=== PATIENT | female | born 1960 ===

== ENCOUNTER 2017-12-22 05:48 | Observation (INO) | payer BC ==
--- NOTE | 2017-12-22 06:20 | ED PDOC ---
Lower Extremity Pain/Injury Time Seen by Provider: 12/22/17 06:00 Chief Complaint (Nursing): Lower Extremity Problem/Injury Chief Complaint (Provider): Right Knee Pain History Per: Patient History/Exam Limitations: no limitations Onset/Duration Of Symptoms: Days (x 1 year ) Current Symptoms Are (Timing): Still Present Additional Complaint(s): 56 year old female with a history of a right patellar fracture presents to the ED complaining of right knee pain, onset 1 year ago. Patient reports the pain is sharp and constant. Patient is known to Dr. Chirinos, orthopedist. She has no other complaints. PMD: Troy Jimenez Past Medical History Reviewed: Historical Data, Nursing Documentation, Vital Signs Vital Signs: Last Vital Signs Temp 98.2 F 12/22/17 06:07 Pulse 76 12/22/17 06:07 Resp 16 12/22/17 06:07 BP 146/85 12/22/17 06:07 Pulse Ox 99 12/22/17 06:07 - Medical History PMH: Denies: Arthritis, CHF, COPD, HTN, Hypercholesterolemia, Hypothyroidism, Rheumatoid Arthritis Other PMH: right patellar fracture - Surgical History Other surgeries: right knee repair - Family History Family History: States: Unknown Family Hx - Home Medications Home Medications: Ambulatory Orders Medication Instructions Recorded Docusate [Colace] 100 mg PO BID #0 cap 02/06/16 Enoxaparin [Lovenox] 40 mg IV DAILY #0 syr 02/06/16 Sennosides [Senna Lax] 8.6 mg PO DAILY PRN #0 tablet 02/06/16 oxyCODONE/Acetaminophen [Percocet 1 tab PO Q4 PRN #0 tab 02/06/16 5/325 mg Tab] oxyCODONE/Acetaminophen [Percocet 2 tab PO Q4 PRN #0 tab 02/06/16 5/325 mg Tab] - Allergies Allergies/Adverse Reactions: Allergies Allergy/AdvReac Type Severity Reaction Status Date / Time No Known Allergies Allergy Verified 02/04/16 08:13 Review of Systems ROS Statement: Except As Marked, All Systems Reviewed And Found Negative Musculoskeletal: Positive for: Leg Pain (right knee pain) Physical Exam - Reviewed Nursing Documentation Reviewed: Yes Vital Signs Reviewed: Yes - Physical Exam Appears: Positive for: Non-toxic, No Acute Distress Head Exam: Positive for: ATRAUMATIC, NORMOCEPHALIC Skin: Positive for: Normal Color, Warm, Dry Eye Exam: Positive for: EOMI, Normal appearance, PERRL Neck: Positive for: Normal, Painless ROM, Supple Cardiovascular/Chest: Positive for: Regular Rate, Rhythm. Negative for: Murmur Respiratory: Positive for: Normal Breath Sounds. Negative for: Respiratory Distress Gastrointestinal/Abdominal: Positive for: Normal Exam, Soft Back: Positive for: Normal Inspection Extremity: Positive for: Normal ROM, Tenderness (mild right knee) - ECG O2 Sat by Pulse Oximetry: 99 (RA) Pulse Ox Interpretation: Normal Medical Decision Making Medical Decision Making: Time: 06:12 Impression: Initial Plan: --EKG --CMP --Urine preg --Urine dip --CBC --PTT --Prothrombin time --Dextrose 5% --Urinalysis Case was discussed with Dr. Kathleen who is aware of patient and will be evaluated by Dr. Chirinos. Scribe Attestation: Documented by Lyudmila Hernandez, acting as a scribe for Krystian Padilla MD. Provider Scribe Attestation: All medical record entries made by the Scribe were at my direction and personally dictated by me. I have reviewed the chart and agree that the record accurately reflects my personal performance of the history, physical exam, medical decision making, and the department course for this patient. I have also personally directed, reviewed, and agree with the discharge instructions and disposition. Disposition - Clinical Impression Clinical Impression: Knee pain - Patient ED Disposition Is Patient to be Admitted: Yes - Disposition Referrals: Troy Jimenez MD [Primary Care Provider] - Disposition Time: 06:14 Condition: STABLE Forms: seedtag (Divehi) Patient Signed Over To: Regan Kathleen - Pt Status Changed To: Hospital Disposition Of: Inpatient - Admit Certification Admit to Inpatient:: After my assessment, the patient will require hospitalization for at least two midnights. This is because of the severity of symptoms shown, intensity of services needed, and/or the medical risk in this patient being treated as an outpatient.
--- NOTE | 2017-12-22 06:39 | CP.PCM.CON ---
History of Present Illness - History of Present Illness History of Present Illness: Orthopedist: Dr Chirinos PMD: Troy Jimenez MD Chief Complaint: Right knee Pain The patient was seen and examined in the ED HPI: This is a 57 years old female with Hx of Right displaced patellar fracture with Hemipatellectomy and joint wiring in 02/07. She comes referring right knee pain for months, becoming worse, and she feels the sensation of a foreign body below the skin at the anterior region of the knee. The Pain increases with pressure and walking, minimal relief with analgesics. No fever, chills, nausea, vomits, diarrhea. PMH: Right Knee displaced patellar Fx PSH: Hysterectomy; Right knee Hemipatellectomy SH: No illegal drug use; No ETOH; never Smoked; Live with her family FH: States: Unknown Family Hx Allergies: NKDA Medication: denies Past Patient History - Infectious Disease Hx of Infectious Diseases: None - Past Medical History & Family History Past Medical History?: No - Past Social History Smoking Status: Never Smoked - CARDIAC Hx Congestive Heart Failure: No Hx Hypercholesterolemia: No Hx Hypertension: No - PULMONARY Hx Chronic Obstructive Pulmonary Disease (COPD): No - NEUROLOGICAL HX Cerebrovascular Accident: No - RENAL Hx Renal Failure: No - ENDOCRINE/METABOLIC Hx Hypothyroidism: No - MUSCULOSKELETAL/RHEUMATOLOGICAL Hx Arthritis: No Hx Rheumatoid Arthritis: No - PSYCHIATRIC Hx Substance Use: No - SURGICAL HISTORY Hx Surgeries: Yes Hx Hysterectomy: Yes (2008) - ANESTHESIA Hx Anesthesia: Yes Hx Anesthesia Reactions: No Hx Malignant Hyperthermia: No Meds Allergies/Adverse Reactions: Allergies Allergy/AdvReac Type Severity Reaction Status Date / Time No Known Allergies Allergy Verified 02/04/16 08:13 - Medications Medications: Current Medications Dextrose/Sodium Chloride (Dextrose 5%/0.45% Ns 1000 Ml) 1,000 mls @ 125 mls/hr IV .Q8H ALIZE Results - Vital Signs Recent Vital Signs: Last Vital Signs Temp 98.2 F 12/22/17 06:07 Pulse 76 12/22/17 06:07 Resp 16 12/22/17 06:07 BP 146/85 12/22/17 06:07 Pulse Ox 99 12/22/17 06:34 - Labs Result Diagrams: 12/22/17 06:34 12/22/17 06:34 Assessment & Plan - Date & Time Date: 12/22/17 Time: 06:39
[2017-12-22] MEDS: Dextrose 5%/0.45% NS 1,000 ML IV SCH ×3 (06:42→22:15)
[2017-12-22 06:44] LABS: BASO # 0.1 K/uL (0.0-0.2); BASO % 0.6 % (0.0-2.0); EOS # 0.3 K/uL (0.0-0.7); EOS % 2.9 % (0.0-4.0); HEMOGLOBIN 14.2 g/dL (12.0-16.0); LYMPH # 2.4 K/uL (1.0-4.3); LYMPH % 26.7 % (20.0-40.0); MEAN CELL VOLUME 92.3 fl (81.0-99.0); MEAN CORPUSCULAR HEMOGLOBIN 31.8 pg (27.0-31.0); MEAN CORPUSCULAR HGB CONC 34.4 g/dL (33.0-37.0); MONO # 0.8 K/uL (0.0-0.8); MONO % 9.1 % (0.0-10.0); NEUT # 5.5 K/uL (1.8-7.0); NEUT % 60.7 % (50.0-75.0); NRBC % 0.2 % (0.0-0.0); RBC 4.47 Mil/uL (3.80-5.20); RED CELL DISTRIBUTION WIDTH 13.2 % (11.5-14.5); WHITE BLOOD COUNT 9.1 K/uL (4.8-10.8)
[2017-12-22 06:54] LABS: SQUAMOUS EPITHIAL 1 /hpf (0-5); URINE BACTERIA RARE (<OCC); URINE BILIRUBIN NEGATIVE (NEGATIVE); URINE BLOOD NEGATIVE (NEGATIVE); URINE CLARITY SLIGHTY-CLOUDY (Clear); URINE COLOR YELLOW (YELLOW); URINE GLUCOSE (UA) NEG (Normal); URINE LEUKOCYTE ESTERASE SMALL Leu/uL (Negative); URINE NITRATE NEGATIVE (NEGATIVE); URINE PROTEIN NEGATIVE (NEGATIVE); URINE UROBILINOGEN 0.2-1.0 mg/dL (0.2-1.0)
[2017-12-22 06:55] LABS: ALB/GLOB RATIO 1.2 (1.0-2.1); ALBUMIN 4.7 g/dL (3.5-5.0); ALT/SGPT 40 U/L (9-52); AST/SGOT 32 U/L (14-36); BLOOD UREA NITROGEN 14 mg/dl (7-17); CALCIUM 9.5 mg/dL (8.4-10.2); GFR AFRICAN-AMERICAN > 60; GFR NON-AFRICAN AMERICAN > 60
--- NOTE | 2017-12-22 08:06 | CP.PCM.HP ---
History of Present Illness - History of Present Illness History of Present Illness: Orthopedist: Dr Chirinos PMD: Troy Jimenez MD Chief Complaint: Right knee Pain The patient was seen and examined in the ED HPI: This is a 57 years old female with Hx of Right displaced patellar fracture with Hemipatellectomy and joint wiring in 02/07. She comes referring right knee pain for months, becoming worse, and she feels the sensation of a foreign body below the skin at the anterior region of the knee. The Pain increases with pressure and walking, minimal relief with analgesics. No fever, chills, nausea, vomits, diarrhea. PMH: Right Knee displaced patellar Fx PSH: Hysterectomy; Right knee Hemipatellectomy SH: No illegal drug use; No ETOH; never Smoked; Live with her family FH: States: Unknown Family Hx Allergies: NKDA Medication: denies Present on Admission - Present on Admission Any Indicators Present on Admission: No History of DVT/PE: No History of Uncontrolled Diabetes: No Urinary Catheter: No Decubitus Ulcer Present: No Review of Systems - Constitutional Constitutional: absent: Anorexia, Chills, Fever, Headache, Weakness - EENT Eyes: Requires Corrective Lenses. absent: Diplopia, Floaters, Photophobia, Sees Flashes Ears: absent: Decreased Hearing, Ear Discharge, Ear Pain, Tinnitus Nose/Mouth/Throat: absent: Epistaxis, Nasal Congestion, Nasal Discharge - Cardiovascular Cardiovascular: absent: Chest Pain, Dyspnea, Leg Edema - Respiratory Respiratory: absent: Cough, Dyspnea, Wheezing, Stridor - Gastrointestinal Gastrointestinal: absent: Abdominal Pain, Constipation, Diarrhea - Genitourinary Genitourinary: Urinary Frequency. absent: Dysuria, Flank Pain, Hematuria - Musculoskeletal Musculoskeletal: Arthralgias. absent: Joint Swelling, Muscle Weakness, Myalgias Additional comments: Pain ti the Right knee - Integumentary Integumentary: absent: Pruritus, Rash, Skin Ulcer, Sores, Striae, Swelling - Neurological Neurological: absent: Confusion, Focal Weakness, Headaches, Weakness - Psychiatric Psychiatric: absent: Anxiety, Depression, Panic Attacks - Endocrine Endocrine: absent: Palpitations, Polydipsia, Polyphagia, Polyuria - Hematologic/Lymphatic Hematologic: absent: Easy Bleeding, Easy Bruising Past Patient History - Infectious Disease Hx of Infectious Diseases: None - Past Medical History & Family History Past Medical History?: No - Past Social History Smoking Status: Never Smoked Chewing Tobacco Use: No Alcohol: None Home Situation {Lives}: With Family - CARDIAC Hx Congestive Heart Failure: No Hx Hypercholesterolemia: No Hx Hypertension: No - PULMONARY Hx Chronic Obstructive Pulmonary Disease (COPD): No - NEUROLOGICAL HX Cerebrovascular Accident: No - HEENT Hx HEENT Problems: No - RENAL Hx Chronic Kidney Disease: No Hx Renal Failure: No - ENDOCRINE/METABOLIC Hx Endocrine Disorders: No Hx Hypothyroidism: No - HEMATOLOGICAL/ONCOLOGICAL Hx Blood Disorders: No - INTEGUMENTARY Hx Dermatological Problems: No - MUSCULOSKELETAL/RHEUMATOLOGICAL Hx Arthritis: No Hx Rheumatoid Arthritis: No - GASTROINTESTINAL Hx Gastrointestinal Disorders: No - GENITOURINARY/GYNECOLOGICAL Hx Genitourinary Disorders: No - PSYCHIATRIC Hx Psychophysiologic Disorder: No Hx Substance Use: No - SURGICAL HISTORY Hx Surgeries: Yes Hx Hysterectomy: Yes (2008) Other/Comment: Right Kaden patellectomy - ANESTHESIA Hx Anesthesia: Yes Hx Anesthesia Reactions: No Hx Malignant Hyperthermia: No Meds Allergies/Adverse Reactions: Allergies Allergy/AdvReac Type Severity Reaction Status Date / Time No Known Allergies Allergy Verified 02/04/16 08:13 Physical Exam - Constitutional Appears: No Acute Distress - Head Exam Head Exam: ATRAUMATIC, NORMAL INSPECTION, NORMOCEPHALIC - Eye Exam Eye Exam: EOMI, Normal appearance Pupil Exam: NORMAL ACCOMODATION, PERRL - ENT Exam ENT Exam: Mucous Membranes Moist, Normal Exam, Normal External Ear Exam, Normal Oropharynx - Neck Exam Neck exam: Positive for: Full Rom, Normal Inspection. Negative for: Lymphadenopathy, Tenderness - Respiratory Exam Respiratory Exam: Clear to Auscultation Bilateral. absent: Rales, Rhonchi, Wheezes - Cardiovascular Exam Cardiovascular Exam: REGULAR RHYTHM, RRR, +S1, +S2 - GI/Abdominal Exam GI & Abdominal Exam: Normal Bowel Sounds, Soft. absent: Mass, Organomegaly, Tenderness - Rectal Exam Rectal Exam: Deferred - Extremities Exam Extremities exam: Negative for: calf tenderness, pedal edema Additional comments: longitudinal surgical scar at the right knee. mild pain on palpation of the patellar region. Hard foreign body 3-4mm palpable at the anterior right knee No edema - Back Exam Back exam: NORMAL INSPECTION. absent: CVA tenderness (L), CVA tenderness (R) - Neurological Exam Neurological exam: Normal Gait, Oriented x3, Reflexes Normal - Psychiatric Exam Psychiatric exam: Normal Affect, Normal Mood - Skin Skin Exam: Intact, Normal Color, Warm Results - Vital Signs Recent Vital Signs: Last Vital Signs Temp 97.8 F 12/22/17 08:02 Pulse 60 12/22/17 08:02 Resp 18 12/22/17 08:02 BP 146/85 12/22/17 08:02 Pulse Ox 99 12/22/17 07:39 - Labs Result Diagrams: 12/22/17 06:34 12/22/17 06:34 Labs: Laboratory Results - last 24 hr 12/22/17 12/22/17 12/22/17 06:34 06:34 06:38 WBC 9.1 RBC 4.47 Hgb 14.2 Hct 41.2 MCV 92.3 MCH 31.8 H MCHC 34.4 RDW 13.2 Plt Count 200 MPV 10.0 Neut % (Auto) 60.7 Lymph % (Auto) 26.7 [place] % (Auto) 9.1 Eos % (Auto) 2.9 Baso % (Auto) 0.6 Neut # (Auto) 5.5 Lymph # (Auto) 2.4 [place] # (Auto) 0.8 Eos # (Auto) 0.3 Baso # (Auto) 0.1 Sodium 142 Potassium 4.2 Chloride 103 Carbon Dioxide 27 Anion Gap 16 BUN 14 Creatinine 0.7 Est GFR ( Amer) > 60 Est GFR (Non-Af Amer) > 60 Random Glucose 108 H Calcium 9.5 Total Bilirubin 0.4 AST 32 ALT 40 Alkaline Phosphatase 74 Total Protein 8.7 H Albumin 4.7 Globulin 4.0 H Albumin/Globulin Ratio 1.2 Urine Color Yellow Urine Clarity Slighty-cloudy Urine pH 5.0 Ur Specific [place] 1.020 Urine Protein Negative Urine Glucose (UA) Neg Urine Ketones Negative Urine Blood Negative Urine Nitrate Negative Urine Bilirubin Negative Urine Urobilinogen 0.2-1.0 Ur Leukocyte Esterase Small Urine RBC (Auto) 2 Urine Microscopic WBC 4 Ur Squamous Epith Cells 1 Urine Bacteria Rare - Impressions Impression: NSR 63/min No sign of ischemia - Imaging and Cardiology Chest x-ray Status: Image reviewed by me Additional comment: No infiltrate Assessment & Plan - Assessment and Plan (Free Text) Assessment: #. Right knee pain Plan: 57 years old female with Hx of Right displaced patellar fracture with Hemipatellectomy and joint wiring in 4/16. She comes referring right knee pain for months, becoming worse, and she feels the sensation of a foreign body below the skin at the anterior region of the knee. #. Right knee pain with hx of right hemipatellectomy. Foreign body below the skin at the Right knee - Consult Dr Chirinos - Orthopedic management - X Ray of the right knee - Pain management Post Surgery - DVT prophylaxis with lovenox post surgery - follow CBC/BMP After review of the Medical history labs and radiographs, no hx of bleeding and with no cardiac nor pulmonary hx, I consider this patient with mild to moderate cardiac risk for surgery. The patient is cleared for Surgery with general anesthesia if needed. - Date & Time Date: 12/22/17 Time: 08:05
--- NOTE | 2017-12-22 08:50 | RAD ---
HISTORY: Medical clearance COMPARISON: 02/04/2016 portable TECHNIQUE: Chest PA and lateral FINDINGS: LUNGS: No consolidation. On the lateral view a 4 to 5 mm nodule projects over the mid thoracic vertebral body pulmonary nodule versus bone island are considerations. Prior study: Frontal view. Current study this finding on lateral view not appreciated on frontal view. PLEURA: No significant pleural effusion identified. No pneumothorax apparent. CARDIOVASCULAR: Normal. OSSEOUS STRUCTURES: Thoracic spondylosis. Bilateral shoulder arthrosis. Right shoulder calcific rotator cuff tendinopathy and/or calcific bursitis. VISUALIZED UPPER ABDOMEN: Normal. OTHER FINDINGS: None. IMPRESSION: No consolidative infiltrate. 4 to 5 mm nodule only appreciated on the lateral view at the approximate mid thoracic vertebral body level -indeterminate. Comparison with any outside chest x-rays lateral views to assess for stability. If no such outside studies are available than noncontrast CT chest recommended.
[2017-12-22 08:58] LABS: INR 1.1 (0.9-1.2); PROTHROMBIN TIME 12.2 Seconds (9.8-13.1)
[2017-12-22] MEDS ORDERED: Absorbable Gelatin Sponge Size 12-7 ONE (09:21)
[2017-12-22] MEDS ORDERED: methylPREDNISolone Depo 80 mg/ml Inj ONE (09:21)
[2017-12-22] MEDS ORDERED: Bupivacaine 0.5% Inj(30mL) ONE ×2 (09:22→09:27)
[2017-12-22] MEDS ORDERED: Thrombin Topical 5,000 Int Units Spray Kit ONE (09:22)
[2017-12-22] MEDS ORDERED: EPINEPHrine 1 mg/ml (1:1000) Inj ONE (09:23)
[2017-12-22] MEDS ORDERED: Lidocaine 1% Inj (20ml) ONE (09:26)
[2017-12-22] MEDS ORDERED: Lidocaine 1% w Epi 1:100,000 Inj ONE (09:27)
--- NOTE | 2017-12-22 10:47 | RAD ---
PROCEDURE: Right Knee Radiographs. HISTORY: right knee pain COMPARISON: 02/04/2016 FINDINGS: BONES: There is interval change in the bulk volume of the patella which was previously fractured and displaced. A screw is seen along its inferior aspect. There is a linear calcification and/or ossification in the region of the patellar tendon not seen as such on the prior study JOINTS: Lateral patellofemoral joint space narrowing noted. The medial femoral tibial joint space also appears narrowed. JOINT EFFUSION: None. OTHER FINDINGS: None. IMPRESSION: Postop changes regarding the patella
--- NOTE | 2017-12-22 11:37 | CARD ---
APPROVED REPORT EKG Measurement Heart [id number] <Conclusion> Normal sinus rhythm Normal ECG
--- NOTE | 2017-12-22 12:12 | CP.PCM.CON ---
History of Present Illness - History of Present Illness History of Present Illness: Patient is a 57 y/o female complaining of right knee pain. She has a history of a right patella repair performed by Dr. Chirinos in 2016. She presented to the ER due to worsening right knee pain over the last few weeks. The pain is sharp in quality and located anteriorly. The pain is brought about by palpation and alleviated with rest. There are no associated symptoms. She has failed conservative management with pain medications and physical therapy. Dr. Chirinos was consulted for orthopedic evaluation. Review of Systems - Review of Systems All systems: reviewed and no additional remarkable complaints except Review of Systems: as per HPI Past Patient History - Infectious Disease Hx of Infectious Diseases: None - Past Medical History & Family History Past Medical History?: No Past Family History: Reviewed and not pertinent - Past Social History Smoking Status: Never Smoked Chewing Tobacco Use: No Alcohol: None Home Situation {Lives}: With Family - CARDIAC Hx Congestive Heart Failure: No Hx Hypercholesterolemia: No Hx Hypertension: No - PULMONARY Hx Chronic Obstructive Pulmonary Disease (COPD): No - NEUROLOGICAL HX Cerebrovascular Accident: No - HEENT Hx HEENT Problems: No - RENAL Hx Chronic Kidney Disease: No Hx Renal Failure: No - ENDOCRINE/METABOLIC Hx Endocrine Disorders: No Hx Hypothyroidism: No - HEMATOLOGICAL/ONCOLOGICAL Hx Blood Disorders: No - INTEGUMENTARY Hx Dermatological Problems: No - MUSCULOSKELETAL/RHEUMATOLOGICAL Hx Arthritis: No Hx Rheumatoid Arthritis: No - GASTROINTESTINAL Hx Gastrointestinal Disorders: No - GENITOURINARY/GYNECOLOGICAL Hx Genitourinary Disorders: No - PSYCHIATRIC Hx Psychophysiologic Disorder: No Hx Substance Use: No - SURGICAL HISTORY Hx Surgeries: Yes Hx Hysterectomy: Yes (2008) Other/Comment: Right Kaden patellectomy - ANESTHESIA Hx Anesthesia: Yes Hx Anesthesia Reactions: No Hx Malignant Hyperthermia: No Meds Allergies/Adverse Reactions: Allergies Allergy/AdvReac Type Severity Reaction Status Date / Time No Known Allergies Allergy Verified 02/04/16 08:13 - Medications Medications: Current Medications Enoxaparin Sodium (Lovenox) 40 mg SC DAILY ALIZE PRN Reason: Protocol Dextrose/Sodium Chloride (Dextrose 5%/0.45% Ns 1000 Ml) 1,000 mls @ 125 mls/hr IV .[facility] Last Admin: 12/22/17 06:42 Dose: 125 mls/hr Physical Exam - Constitutional Appears: No Acute Distress - Head Exam Head Exam: ATRAUMATIC, NORMAL INSPECTION, NORMOCEPHALIC - Eye Exam Eye Exam: EOMI, Normal appearance - ENT Exam ENT Exam: Mucous Membranes Moist - Respiratory Exam Respiratory Exam: NORMAL BREATHING PATTERN - Extremities Exam Additional comments: Right knee: old midline incision well healed, small palpable mass at the mid aspect anteriorly with positive tenderness. ROM: 0-120. Sensation intact SP/DP/ TN. Motor intact EHL/FHL/TA/gastron/hip flex. pedal pulses intact. calves soft NT b/l - Expanded Lower Extremities Exam Right Knee exam: full ROM, tenderness. absent: ecchymosis, effusion, erythema, swelling Results - Vital Signs Recent Vital Signs: Last Vital Signs Temp 97.5 F L 12/22/17 08:30 Pulse 76 12/22/17 08:30 Resp 18 12/22/17 08:30 BP 136/85 12/22/17 08:30 Pulse Ox 98 12/22/17 08:30 - Labs Result Diagrams: 12/22/17 06:34 12/22/17 06:34 Labs: Laboratory Results - last 24 hr 12/22/17 12/22/17 12/22/17 06:34 06:34 06:38 WBC 9.1 RBC 4.47 Hgb 14.2 Hct 41.2 MCV 92.3 MCH 31.8 H MCHC 34.4 RDW 13.2 Plt Count 200 MPV 10.0 Neut % (Auto) 60.7 Lymph % (Auto) 26.7 [place] % (Auto) 9.1 Eos % (Auto) 2.9 Baso % (Auto) 0.6 Neut # (Auto) 5.5 Lymph # (Auto) 2.4 [place] # (Auto) 0.8 Eos # (Auto) 0.3 Baso # (Auto) 0.1 PT INR APTT Sodium 142 Potassium 4.2 Chloride 103 Carbon Dioxide 27 Anion Gap 16 BUN 14 Creatinine 0.7 Est GFR ( Amer) > 60 Est GFR (Non-Af Amer) > 60 Random Glucose 108 H Calcium 9.5 Total Bilirubin 0.4 AST 32 ALT 40 Alkaline Phosphatase 74 Total Protein 8.7 H Albumin 4.7 Globulin 4.0 H Albumin/Globulin Ratio 1.2 Urine Color Yellow Urine Clarity Slighty-cloudy Urine pH 5.0 Ur Specific [place] 1.020 Urine Protein Negative Urine Glucose (UA) Neg Urine Ketones Negative Urine Blood Negative Urine Nitrate Negative Urine Bilirubin Negative Urine Urobilinogen 0.2-1.0 Ur Leukocyte Esterase Small Urine RBC (Auto) 2 Urine Microscopic WBC 4 Ur Squamous Epith Cells 1 Urine Bacteria Rare BBK History Checked 12/22/17 12/22/17 08:15 11:15 WBC RBC Hgb Hct MCV MCH MCHC RDW Plt Count MPV Neut % (Auto) Lymph % (Auto) [place] % (Auto) Eos % (Auto) Baso % (Auto) Neut # (Auto) Lymph # (Auto) [place] # (Auto) Eos # (Auto) Baso # (Auto) PT 12.2 INR 1.1 APTT 32.0 Sodium Potassium Chloride Carbon Dioxide Anion Gap BUN Creatinine Est GFR ( Amer) Est GFR (Non-Af Amer) Random Glucose Calcium Total Bilirubin AST ALT Alkaline Phosphatase Total Protein Albumin Globulin Albumin/Globulin Ratio Urine Color Urine Clarity Urine pH Ur Specific [place] Urine Protein Urine Glucose (UA) Urine Ketones Urine Blood Urine Nitrate Urine Bilirubin Urine Urobilinogen Ur Leukocyte Esterase Urine RBC (Auto) Urine Microscopic WBC Ur Squamous Epith Cells Urine Bacteria BBK History Checked No verified bt - Impressions Impression: PROCEDURE: Right Knee Radiographs. HISTORY: right knee pain COMPARISON: 02/04/2016 FINDINGS: BONES: There is interval change in the bulk volume of the patella which was previously fractured and displaced. A screw is seen along its inferior aspect. There is a linear calcification and/or ossification in the region of the patellar tendon not seen as such on the prior study JOINTS: Lateral patellofemoral joint space narrowing noted. The medial femoral tibial joint space also appears narrowed. JOINT EFFUSION: None. OTHER FINDINGS: None. IMPRESSION: Postop changes regarding the patella Assessment & Plan (1) Painful orthopaedic hardware Assessment and Plan: Patient is a 57 y/o female with right painful knee secondary to hardware. -It was proposed by Dr. Chirinos to perform an right knee removal of hardware surgically -The risks/benefits/advantages/disadvantages were explained to the patient and she would like to proceed with the proposed procedure. -NPO -The patient's case and plan was discussed in agreement with Dr. Chirinos -Consult appreciated Status: Acute
[2017-12-22] MEDS ORDERED: Propofol 10 mg/ml Inj (20 ML) ONE (12:28)
[2017-12-22] MEDS ORDERED: Succinylcholine 200 mg/10 ml Inj IV ONE (12:28)
[2017-12-22] MEDS ORDERED: Etomidate 20 mg/10ml Inj IV ONE (12:28)
[2017-12-22] MEDS ORDERED: Lactated Ringer's 1,000 ML IV ONE ×3 (14:00→18:15)
[2017-12-22] MEDS ORDERED: Rocuronium 10 mg/ml (5 ml) ONE ×2 (14:21→15:55)
[2017-12-22] MEDS ORDERED: Oxycodone/Acetaminophen 5/325 mg Tab PO PRN (16:50)
[2017-12-22] MEDS ORDERED: HYDROmorphone 0.5 mg/0.5 ml ISec IVP PRN (17:26)
[2017-12-22] MEDS ORDERED: Lactated Ringer's 1,000 ML IV SCH (17:30)
--- NOTE | 2017-12-22 17:30 | PCM.ANESB3 ---
Femoral Nerve Block - Femoral Nerve Block Date of Procedure: 12/22/17 Anesthesiologist: Phil[place] Pre-Procedure Diagnosis: Right knee painful hardware Post-Procedure Diagnosis: same Procedure Performed: Femoral Nerve Block Right - Procedure Femoral Nerve Block: The procedure was explained to the patient that it is for the post-operative pain management. Consent was obtained after a thorough discussion with the patient regarding the benefits and possible complications of local anesthetic block of the femoral nerve at the inguinal crease area. The patient was brought to the operating room and standard monitors were applied. Time-out was held with the circulating nurse to confirm the correct surgery and the appropriate block. Under general anesthesia, at conclusion of procedure, patient was placed in supine position with fully extended lower extremities and the ___right groin exposed. The femoral artery was then carefully palpated. The ultrasound transducer was then applied to this area in the transverse plane and the femoral nerve was visualized lateral to the femoral artery and underneath the fascia iliaca. After thorough identification, the inguinal crease area was prepped with Chloraprep. At this point, a #22 gauge Stimuplex 4-inch needle was inserted immediately lateral to the femoral artery pulse at the inguinal crease and advanced perpendicularly. The needle was inserted to the ultrasound transducer in-plane towards the femoral nerve in a [id number] direction. Needle advancement was performed carefully under direct ultrasound visualization. Nerve stimulator was used and twitch of the quadriceps muscle was obtained at current of ___0.4__ MA. After negative aspiration, __2___cc of __0.5___% ___bupivicaine with 1:200, 000 epinephrine was injected and this was followed with __28___ _ cc of ___0.5____ % ___bupivicaine with 1:200,000 epinephrine . Under ultrasound guidance the local anesthetics were observed spreading below fascia iliaca and around the femoral nerve. The needle was removed intact . The patient had stable vital signs, was conscious and in no apparent distress. The patient tolerated the femoral nerve block well with stable vital signs and was prepared for emergence.
--- NOTE | 2017-12-22 17:37 | PCM.SURG1 ---
Surgeon's Initial Post Op Note - Surgeon's Notes Surgeon: Taran Director On Air: SRIDHAR Jolly/ 2nd assist ,Ed Maria Type of Anesthesia: General Endo Anesthesia Administered By: Dr Brooke Pre-Operative Diagnosis: Painful hardware L knee. O/A chondral fx medial femoral condyle. tear lateral meniscus. medial pl;ica. tearmedial meniscus. synovitis - tricompartmental Operative Findings: as above Post-Operative Diagnosis: as above Operation Performed: primary repair/reconstruction patella ligament. surgical arthroscopy- microfracture/abrasion arthroplasty. surg artyhroscopy partioal tricompartmental synovectomy. surg arthroscopy- p[artial medial/lateral meniscectomy. removal foreign body( deep). allograft bone graft Specimen/Specimens Removed: foreign body(screw). suture. synvium/meniscal cartilage Estimated Blood Loss: EBL {In ML}: 20 Blood Products Given: N/A Drains Used: No Drains Post-Op Condition: Good Date of Surgery/Procedure: 12/22/17 Time of Surgery/Procedure: 15:00 (time in room/anaesthesia indcurtion time 1400)
--- NOTE | 2017-12-22 18:03 | RAD ---
PROCEDURE: Right Knee Radiographs. HISTORY: s/p Right knee removal of hardware COMPARISON: 12/22/2017 10:24 a.m. FINDINGS: BONES: No acute fracture. Status post surgical resection inferior half of patella. No radiopaque foreign body identified. Subcutaneous gas and gas in the suprapatellar bursa, consistent with postoperative change. JOINTS: Medial and lateral compartments are grossly preserved. JOINT EFFUSION: None. OTHER FINDINGS: None. IMPRESSION: No radiopaque foreign body identified.
[2017-12-22] MEDS ORDERED: Alum-Mag Hydrox-Simethicone Susp (30 mL) PO PRN (19:09)
[2017-12-22 22:28] VITALS: RESP 20
[2017-12-23 02:39] VITALS: TEMP 98.4
[2017-12-23 06:37] LABS: HEMOGLOBIN 12.7 g/dL (12.0-16.0); MEAN CELL VOLUME 92.7 fl (81.0-99.0); MEAN CORPUSCULAR HEMOGLOBIN 31.1 pg (27.0-31.0); MEAN CORPUSCULAR HGB CONC 33.5 g/dL (33.0-37.0); RBC 4.07 Mil/uL (3.80-5.20); WHITE BLOOD COUNT 12.1 K/uL (4.8-10.8)
[2017-12-23 06:47] LABS: BLOOD UREA NITROGEN 13 mg/dl (7-17); CALCIUM 9.3 mg/dL (8.4-10.2); GFR AFRICAN-AMERICAN > 60; GFR NON-AFRICAN AMERICAN > 60
[2017-12-23 07:50] VITALS: BP 115/65; PULSE 88; O2SAT 96
[2017-12-23] MEDS ORDERED: Enoxaparin 40 mg Syringe SC SCH (09:00)
--- NOTE | 2017-12-23 09:17 | CP.PCM.DIS ---
Provider - Provider Date of Admission: 12/22/17 06:14 Attending physician: Regan Kathleen Primary care physician: Troy Jimenez MD Consults: Dr Chirinos : Ortho Time Spent in preparation of Discharge (in minutes): 20 Diagnosis - Discharge Diagnosis (1) Knee pain Status: Acute (2) Painful orthopaedic hardware Status: Acute Hospital Course - Lab Results Lab Results: Most Recent Lab Values WBC 12.1 K/uL (4.8-10.8) H 12/23/17 05:35 RBC 4.07 Mil/uL (3.80-5.20) 12/23/17 05:35 Hgb 12.7 g/dL (12.0-16.0) 12/23/17 05:35 Hct 37.7 % (34.0-47.0) 12/23/17 05:35 MCV 92.7 fl (81.0-99.0) 12/23/17 05:35 MCH 31.1 pg (27.0-31.0) H 12/23/17 05:35 MCHC 33.5 g/dL (33.0-37.0) 12/23/17 05:35 RDW 13.0 % (11.5-14.5) 12/23/17 05:35 Plt Count 207 K/uL (130-400) 12/23/17 05:35 MPV 10.0 fl (7.2-11.7) 12/22/17 06:34 Neut % (Auto) 60.7 % (50.0-75.0) 12/22/17 06:34 Lymph % (Auto) 26.7 % (20.0-40.0) 12/22/17 06:34 Titus % (Auto) 9.1 % (0.0-10.0) 12/22/17 06:34 Eos % (Auto) 2.9 % (0.0-4.0) 12/22/17 06:34 Baso % (Auto) 0.6 % (0.0-2.0) 12/22/17 06:34 Neut # (Auto) 5.5 K/uL (1.8-7.0) 12/22/17 06:34 Lymph # (Auto) 2.4 K/uL (1.0-4.3) 12/22/17 06:34 Titus # (Auto) 0.8 K/uL (0.0-0.8) 12/22/17 06:34 Eos # (Auto) 0.3 K/uL (0.0-0.7) 12/22/17 06:34 Baso # (Auto) 0.1 K/uL (0.0-0.2) 12/22/17 06:34 PT 12.2 Seconds (9.8-13.1) 12/22/17 08:15 INR 1.1 (0.9-1.2) 12/22/17 08:15 APTT 32.0 Seconds (25.6-37.1) 12/22/17 08:15 Sodium 140 mmol/l (132-148) 12/23/17 05:35 Potassium 4.3 MMOL/L (3.6-5.0) 12/23/17 05:35 Chloride 104 mmol/L (98-107) 12/23/17 05:35 Carbon Dioxide 25 mmol/L (22-30) 12/23/17 05:35 Anion Gap 15 (10-20) 12/23/17 05:35 BUN 13 mg/dl (7-17) 12/23/17 05:35 Creatinine 0.7 mg/dl (0.7-1.2) 12/23/17 05:35 Est GFR ( Amer) > 60 12/23/17 05:35 Est GFR (Non-Af Amer) > 60 12/23/17 05:35 Random Glucose 125 mg/dL (65-105) H 12/23/17 05:35 Calcium 9.3 mg/dL (8.4-10.2) 12/23/17 05:35 Total Bilirubin 0.4 mg/dl (0.2-1.3) 12/22/17 06:34 AST 32 U/L (14-36) 12/22/17 06:34 ALT 40 U/L (9-52) 12/22/17 06:34 Alkaline Phosphatase 74 U/L (38-126) 12/22/17 06:34 Total Protein 8.7 G/DL (6.3-8.2) H 12/22/17 06:34 Albumin 4.7 g/dL (3.5-5.0) 12/22/17 06:34 Globulin 4.0 gm/dL (2.2-3.9) H 12/22/17 06:34 Albumin/Globulin Ratio 1.2 (1.0-2.1) 12/22/17 06:34 Urine Color Yellow (YELLOW) 12/22/17 06:38 Urine Clarity Slighty-cloudy (Clear) 12/22/17 06:38 Urine pH 5.0 (5.0-8.0) 12/22/17 06:38 Ur Specific Redfox 1.020 (1.003-1.030) 12/22/17 06:38 Urine Protein Negative mg/dL (NEGATIVE) 12/22/17 06:38 Urine Glucose (UA) Neg mg/dL (Normal) 12/22/17 06:38 Urine Ketones Negative mg/dL (NEGATIVE) 12/22/17 06:38 Urine Blood Negative (NEGATIVE) 12/22/17 06:38 Urine Nitrate Negative (NEGATIVE) 12/22/17 06:38 Urine Bilirubin Negative (NEGATIVE) 12/22/17 06:38 Urine Urobilinogen 0.2-1.0 mg/dL (0.2-1.0) 12/22/17 06:38 Ur Leukocyte Esterase Small Simi/uL (Negative) 12/22/17 06:38 Urine RBC (Auto) 2 /hpf (0-3) 12/22/17 06:38 Urine Microscopic WBC 4 /hpf (0-5) 12/22/17 06:38 Ur Squamous Epith Cells 1 /hpf (0-5) 12/22/17 06:38 Urine Bacteria Rare (<OCC) 12/22/17 06:38 Blood Type O POSITIVE 12/22/17 11:15 Blood Type Confirm O POSITIVE 12/22/17 12:05 Antibody Screen Negative 12/22/17 11:15 BBK History Checked No verified bt 12/22/17 11:15 - Hospital Course Hospital Course: 57 years old female with Hx of Right displaced patellar fracture with Hemipatellectomy and joint wiring January 2016. She comes complaining of right knee pain for months, becoming worse, and she feels the sensation of a foreign body below the skin at the anterior region of the knee. 1. Right knee pain/ Painful Hardware with hx of right hemipatellectomy s/p Arthroscopic surgery, removal of hardware and repair of ligament - Consulted Dr Chirinos - Pt underwent surgery - Pain mgt - PT/OT consulted- pt was trained and provided use of Crutches. DVT proph - Aspirin daily Discharge Exam - Head Exam Head Exam: ATRAUMATIC, NORMAL INSPECTION, NORMOCEPHALIC - Eye Exam Eye Exam: EOMI, Normal appearance Pupil Exam: NORMAL ACCOMODATION - ENT Exam ENT Exam: Mucous Membranes Moist, Normal External Ear Exam - Neck Exam Neck exam: Full Rom - Respiratory Exam Respiratory Exam: NORMAL BREATHING PATTERN. absent: Respiratory Distress - Cardiovascular Exam Cardiovascular Exam: REGULAR RHYTHM, +S1, +S2 - GI/Abdominal Exam GI & Abdominal Exam: Normal Bowel Sounds, Soft. absent: Tenderness - Extremities Exam Extremities exam: normal capillary refill, pedal pulses present Additional comments: no calf tenderness - Back Exam Back exam: FULL ROM. absent: CVA tenderness (L), CVA tenderness (R) - Neurological Exam Neurological exam: Alert, CN II-XII Intact, Oriented x3, Reflexes Normal - Psychiatric Exam Psychiatric exam: Normal Affect, Normal Mood - Skin Skin Exam: Dry, Normal Color, Warm Discharge Plan - Discharge Medications Prescriptions: oxyCODONE/Acetaminophen [Percocet 5/325 mg Tab] 1 - 2 ea PO Q6 PRN #40 tab PRN Reason: Pain, Severe (8-10) - Follow Up Plan Condition: GOOD Disposition: HOME/ ROUTINE Instructions: Knee Pain (DC), Knee Arthroscopy (DC) Additional Instructions: Hacer linda con zapata primario y cirujano dentro de 1 semana. Referrals: Carlos Chirinos III, MD [Staff Provider] - Troy Jimenez MD [Primary Care Provider] -
--- NOTE | 2017-12-23 15:38 | RAD ---
PROCEDURE: Intraoperative fluoroscopy HISTORY: RIGHT KNEE COMPARISON: Not available TECHNIQUE: Intraoperative fluoroscopy was provided for removal of patellar hardware. Total time of fluoroscopy was 6.7 seconds. FINDINGS: Five fluoroscopic spot films are submitted. IMPRESSION: Fluoroscopy provided.
--- NOTE | 2017-12-24 23:47 | OP ---
PROCEDURE DATE: 12/22/2017 TIME OF THE PROCEDURE: Time in the room 1400 hours, incision time 1500 hours. PREOPERATIVE DIAGNOSIS: Painful hardware, right knee. POSTOPERATIVE DIAGNOSES: 1. Painful hardware, right knee. 2. Chondral fracture, medial femoral condyle. 3. Tear in lateral meniscus and tear in medial meniscus. 4. Medial plica. 5. Tricompartmental synovitis. OPERATIVE FINDINGS: As above. OPERATIVE PROCEDURE: 1. Primary repair of patellar ligament. 2. Patellar osteotomy. 3. Surgical arthroscopy, abrasion arthroplasty, right knee. 4. Surgical arthroscopy, partial medial and lateral meniscectomy. 5. Surgical arthroscopy, excision of medial plica. 6. Surgical arthroscopy, partial tricompartmental synovectomy. 7. Removal of hardware, deep. 8. Positioning of fluoroscope, interpretation of video images. 9. Application of Ravi Perez compression dressing and knee immobilizer. SURGEON: Carlos Chirinos MD [employer]IONAL VICE PRESIDENT LIFE SALES: Christel Oreilly, certified registered nursing registered nurse first assistant. SECOND [employer]RECTIONAL FACILITY PSYCHIATRIST: PRANAV Carmen. SPECIMENS REMOVED: Foreign bodies, screw, suture and synovium meniscal cartilage. BLOOD LOSS: 20 ml. BLOOD PRODUCTS: Given none. DRAINS: None. POSTOPERATIVE CONDITION: Stable. 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 The right knee is the involved knee. The patient presents after healing of the hemipatellectomy with patellar ligament advancement for trauma several years ago, now presents with increasing pain in the area of the patella. The patient failed conservative management consisting of injection, activity modification and therapy. The patient can no longer withstand the discomfort. Pros, cons, risks and benefits of surgical approach were discussed. The possibility of mechanical failure, infection, thromboembolic disease, secondary or tertiary surgery was discussed. The patient can no longer withstand the discomfort, but absolutely made it mandatory that the hardware be removed from the patella. The possibility of mechanical failure, infection, thromboembolic disease, the concept of the exposure of the hardware by incision of the patellar ligament and later repair the patellar ligament is discussed. Possibility of stiffness, mechanical failure, infection, thromboembolic disease as discussed. The concept of arthroscopy is discussed as well. The concept of later joint replacement arthroplasty in the future was also discussed. OPERATIVE PROCEDURE: After having obtained informed consent in the above fashion, after having identified side, site and procedure in the above fashion, the patient identified as Gail Ul in the supine position with all bony prominences well padded. The right lower extremity was prepped and free draped in the usual fashion for extremity surgery. The tourniquet had been applied, but is not yet inflated. After exsanguinating the limb using a 6-inch Esmarch bandage, tourniquet which had been applied and inflated to 350 mmHg. The patient can no longer withstand the discomfort thus necessitating the surgery. After having obtained informed consent, after having identified side, site and procedure and a critical pause/time-out after the satisfactory induction of the anesthetic, the right lower extremity was prepped and free draped in usual fashion for lower extremity surgery. The tourniquet had been applied but was not yet inflated. The arthroscopic portion of the procedure will be accomplished initially. First however, after sterilely prepping and draping, after the satisfactory induction of spinal and regional anesthesia, under the surgeon's direction, the fluoroscope was positioned, video images were generated, therapeutic decisions were made therefrom. The anchor in the inferior pole of the patella is noted. This having been accomplished, the joint is insufflated with 10 mL of 1% lidocaine without epinephrine using #11 blade followed by spreading. Followed by introduction of the blunt trocar, the arthroscope was introduced. With the surgeon exerting a gentle valgus stress, triangulation was accomplished using #18 gauge spinal needle followed by #11 blade, followed by spreading. With the arthroscope anterolaterally, a thorough partial tricompartmental synovectomy is accomplished both to improve visualization and to ablate irritative tissue. With the arthroscope anterolaterally, careful partial tricompartmental synovectomy is completed. There was found to be evidence of chondral damage in the medial femoral condyle. There was evidence of medial plica which is relatively robust. The patient was found to have a tear of the medial meniscus and tear of the lateral meniscus. Triangulation again is accomplished using a #18 gauge spinal needle from an anteromedial portal using #11 blade, followed by spreading, followed by introduction of blunt trocar. With the arthroscope anterolaterally, a careful partial tricompartmental synovectomy is completed. This having been accomplished, the wound was thoroughly irrigated and with the arthroscope anterolaterally, the medial meniscus was exposed to advantage. There was found to be a tear of the inner free edge of the medial meniscus, please refer to the video photographs. Using a combination of the arthroscopic shaver and the ArthroCare wand and the straight biting and side biting basket forceps, the partial medial meniscectomy was accomplished. The anterior cruciate ligament is found to be intact. Attention was turned to the lateral compartment where there was evidence of a tear of the lateral meniscus deep posteriorly. On page one of the photographs from the surgery, there is evidence of the medial plica which is robust, excision of the medial plica is accomplished as well as a careful partial tricompartmental synovectomy with the arthroscopic shaver. With the knee in figure four position with the arthroscope anterolaterally, it was found to be a tear of the inner free edge of the lateral meniscus. Using a combination of straight biting basket forceps and side biting basket forceps, the partial lateral meniscectomy was accomplished. The inner free edge was smoothed using the Zeomatrix surface wand, so partial medial meniscectomy, partial lateral meniscectomy had been accomplished, partial tricompartmental synovectomy with the arthroscopic shaver as well as excision of the medial plica. With the arthroscope anterolaterally, there was found to be evidence of a chondral defect in the medial femoral condyle. Using the arthroscopic shaver, abrasion arthroplasty of the medial femoral condyle was accomplished. Cartilaginous fragments were thus removed at the chondral base. A microfracture was accomplished using the arthroscopic pick. Microfracture abrasion arthroplasty having been accomplished, partial tricompartmental synovectomy is completed. Bleeding points controlled with the wand at this point in time. Portals were closed with interrupted Vicryl and nylon. Attention is turned to the loose body and the incision was extended a fingerbreadth proximally and distally. The initial incision was carried down through the skin and subcutaneous tissue. In the area of the prepatellar bursa, flaps were raised medially and laterally to expose the patella. From the previous patellar ligament advancement, it was found to be a marked foreign body which was prominent on the lateral aspect of the patella, that is excised. That was very prominent and was causing the patient discomfort. At this point in time and keeping with the patient's wish of removing the screw under the surgeon's direction, the fluoroscope was positioned, video images were generated, therapeutic decisions were made therefrom. At this point in time, the anchor was identified. Using a saw, patellar osteotomy is accomplished, and this having been accomplished, the anchor was identified. Using a bur, the anchor was circumferentially removed. was removed as well the foreign body, hardware was removed. Attention is now turned to the patella. The patellectomy having been accomplished, with the knee in extension, repair of the patellar ligament is accomplished using two Kalie type sutures and at this point in time, SwiveLock anchors were employed of PEEK bioabsorbable material in the patella. Drilling was accomplished followed by sounding, tapping is accomplished and the SwiveLock was employed and the knee is in extension and the patellar ligament is thus repaired to the inferior aspect of the patella. This was accomplished with two separate absorbable SwiveLock. The metallic screws removed as per the patient's request. The retinaculum was repaired using modified Waite suture medially, so the medial retinaculum was applied. Patellar ligament was reconstructed. Patellar osteotomy having been accomplished, foreign body having been removed from the anterior aspect of the patella. The wound was thoroughly irrigated. Closures in layers. Hemostasis controlled with the Aquamantys. Closures in layers with interrupted Vicryl and joel. Ravi Perez compression dressing and knee immobilizers applied. Carlos Chirinos MD
== END 2017-12-23 11:55 | disposition home or self-care (01) ==
LOC: H.ER 05:48 → INTOOBSV 06:14 → H.ERHOLD 06:14 → H.MEDSURG1 08:49
PROVIDERS: ADMIT Internal Medicine; ATTEND Internal Medicine
DX: T84.84XA Pain due to internal orthopedic prosthetic devices, implants and grafts, initial encounter (principal); Y83.1 Surgical operation with implant of artificial internal device as the cause of abnormal reaction of the patient, or of later complication, without mention of misadventure at the time of the procedure; M65.9 Synovitis and tenosynovitis, unspecified; M67.51 Plica syndrome, right knee; S72.431A Displaced fracture of medial condyle of right femur, initial encounter for closed fracture; S83.281A Other tear of lateral meniscus, current injury, right knee, initial encounter; S83.241A Other tear of medial meniscus, current injury, right knee, initial encounter
CPT/HCPCS: 20680; 27380; 29879; 36415; 71046; 73560; 73562; 80048; 80053; 81003; 81025; 85025; 85027; 85610; 85730; 86850; 86900; 88304; 93005; 97116; 97161; 99284; C1713; G0378; G8978; G8979; G8980; J0171; J0330; J0690; J1650; J1885; J2001; J2704; J3010; J7030; J7042; J7120